=== PATIENT | female | born 1945 | race Caucasian/White ===

== ENCOUNTER 2016-10-08 19:30 | Inpatient (IN) | payer MEDICARE ==
[2016-10-08] MEDS ORDERED: MORPHINE SULFATE 5 MG/ML PFS IVP ONE (20:12)
[2016-10-08] MEDS ORDERED: ONDANSETRON HCL IV 4 MG/2 ML VIAL IVP ONE (20:12)
[2016-10-08] MEDS ORDERED: 0.9 % SODIUM CHLORIDE 1000ML 1,000 ML IV SCH (20:15)
--- NOTE | 2016-10-08 20:17 | Emergency Department Record ---
History of Present Illness - General Stated complaint: VOMITING, ABD PAIN Time Seen by Provider: 10/08/16 20:11 Source: Patient Mode of Arrival: Ambulatory Limitations: No limitations - History of Present Illness Initial comments: 70 yo female presents to ED with a 3-day history of nausea, vomiting, and abdominal pain symptoms. Patient reports recent contact with her grandchild diagnosed with rotovirus. Patient reports previous aniket/ANDRE, denies history of colitis/bowel obstructions. Patient denies fevers, chills, or cough symptoms. MD complaint: Abdominal pain, Nausea, Vomiting Onset/Timin -: Days(s) Associated Abdominal Pain: Yes Location: Diffuse Radiation: None Severity: Moderate Quality: Aching, Cramping Consistency: Constant Improves with: None Worsens with: None Context: Sick contacts - Related Data Allergies Allergy/AdvReac Type Severity Reaction Status Date / Time amoxicillin trihydrate Allergy HEADACHE Verified 10/08/16 20:31 [From Augmentin] meperidine HCl [From Demerol] Allergy VOMITING Verified 10/08/16 20:31 moxifloxacin HCl Allergy HEADACHE Verified 10/08/16 20:31 [From Avelox] potassium clavulanate Allergy HEADACHE Verified 10/08/16 20:31 [From Augmentin] Review of Systems Constitutional: Denies: Chills, Fever, Malaise, Night sweats Eyes: Denies: Eye discharge, Eye pain ENT: Denies: Congestion, Ear pain, Epistaxis Respiratory: Denies: Cough, Dyspnea Cardiovascular: Denies: Chest pain, Dyspnea on exertion Endocrine: Denies: Fatigue, Heat or cold intolerance Gastrointestinal: Reports: Abdominal pain, Diarrhea, Nausea, Vomiting. Denies: Constipation Genitourinary: Denies: Frequency, Hematuria, Incontinence, Retention Musculoskeletal: Denies: Arthralgia, Back pain, Gout, Joint swelling Skin: Denies: Bruising, Change in color Neurological: Denies: Abnormal gait, Confusion, Headache, Tingling Psychiatric: Denies: Anxiety Hematological/Lymphatic: Denies: Anemia, Blood Clots Physical Exam - General General Appearance: Alert, Oriented x3, Cooperative, Moderate distress Limitations: No limitations - Head Head exam: Atraumatic, Normocephalic, Normal inspection Head exam detail: negative: Abrasion, Contusion, Clark's sign, General tenderness, Hematoma, Laceration - Eye Eye exam: Normal appearance. negative: Conjunctival injection, Periorbital swelling, Periorbital tenderness, Scleral icterus - ENT Ear exam: negative: Auricular hematoma, Auricular trauma Nasal Exam: negative: Active bleeding, Discharge, Dried blood, Foreign body Mouth exam: negative: Drooling, Laceration, Muffled voice, Tongue elevation - Neck Neck exam: Normal inspection. negative: Meningismus, Tenderness - Respiratory Respiratory exam: Normal lung sounds bilaterally. negative: Respiratory distress, Rhonchi, Stridor, Wheezes - Cardiovascular Cardiovascular Exam: Regular rate, Normal rhythm, Normal heart sounds - GI/Abdominal GI/Abdominal exam: Soft, Tenderness (mild, diffuse TTP on examination, no focal TTP, no rebound or guarding present). negative: Rebound, Rigid - Rectal Rectal exam: Deferred - exam: Deferred - Extremities Extremities exam: Normal inspection. negative: Calf tenderness, Pedal edema, Tenderness - Back Back exam: Denies: CVA tenderness (R), CVA tenderness (L), Paraspinal tenderness , Rash noted - Neurological Neurological exam: Alert, Oriented X3. negative: Motor sensory deficit - Psychiatric Psychiatric exam: Normal affect, Normal mood - Skin Skin exam: Normal color. negative: Abrasion Type of lesion: negative: abrasion Course - Reevaluation(s) Reevaluation #1: 10/08/16 21:26 Labs reviewed, WBC 6.5, Hgb 18, HCT 52.3. Creatininie 1.7 (baseline 0.8), BUN 29 (baseline 16-20). AST/ALT mildly elevated at 66/78. Stool studies are pending at this time, influenza is negative. Patient is back from CT, interpretation pending. Reevaluation #2: 10/08/16 21:42 CT Abdomen and Pelvis: 2 mm non-obstructing calculi left kidney, no hydronephrosis, no obstructing calculi, diverticulosis without evidence for diverticulitis. Patient reassessed, clinically improved. Patient does not have the urge to give stool sample at this time. Patient and family were updated on all results , as well, repeat abdominal examination reveal a soft, non-tender abdomen at this time, abdomen is non-surgical. Will admit for dehydration/RUBÉN with IVF resuscitation over night and antiemetics for her symptoms. Patient and family agree with plan as discussed. Medical Decision Making - Lab Data Result diagrams: 10/08/16 20:40 10/08/16 20:40 Disposition Disposition: Admit Clinical Impression: Dehydration, Acute kidney injury, Nausea, Vomiting, and Diarrhea Disposition: Still a Patient at [facility] Decision to Admit: Admit from ER Decision to Admit Date: 10/08/16 Decision to Admit Time: 21:49 Condition: (2) Stable Time of Disposition: 21:49
[2016-10-08 20:49] LABS: INFLUENZA A NEGATIVE (NEGATIVE); INFLUENZA B NEGATIVE (NEGATIVE)
[2016-10-08 20:51] LABS: BASO % 0.6 % (0-6); EOS % 0.3 % (0-6); HEMATOCRIT 52.3 % (35.0-47.0); LYMPH % 14.3 % (16-45); MEAN CELL VOLUME 88.9 fl (81-97); MEAN CORPUSCULAR HEMOGLOBIN 30.6 pg (27-33); MEAN CORPUSCULAR HGB CONC 34.4 g/dl (32-36); MEAN PLATELET VOLUME 10.6 fl (7.4-10.4); MONO % 7.8 % (0-9); PLATELET COUNT 225 K/uL (130-400); RED BLOOD COUNT 5.88 M/uL (3.80-5.40); RED CELL DISTRIBUTION WIDTH 14.5 % (11.5-14.5); WHITE BLOOD COUNT W/O DIFF 6.5 K/uL (4.2-12.2)
[2016-10-08 21:02] LABS: LACTIC ACID 1.8 mmol/L (0.7-2.1)
[2016-10-08 21:03] LABS: ALB/GLOB RATIO 1.3 (1.1-1.8); ALBUMIN 4.6 gm/dL (3.5-5.0); BILIRUBIN,TOTAL 0.7 mg/dL (0.2-1.3); CREATININE 1.7 mg/dL (0.52-1.04); TOTAL PROTEIN 8.2 gm/dL (6.3-8.2)
[2016-10-08 22:18] LABS: URINE APPEARANCE CLEAR; URINE BILIRUBIN SMALL (NEGATIVE); URINE BLOOD TRACE-I (NEGATIVE); URINE COLOR YELLOW; URINE GLUCOSE (UA) NEGATIVE (NEGATIVE); URINE KETONE TRACE (NEGATIVE); URINE LEUKOCYTE ESTERASE NEGATIVE (NEGATIVE); URINE NITRITE NEGATIVE (NEGATIVE); URINE UROBILINOGEN 0.2 E.U./dL (0.20 - 1.00)
[2016-10-08 22:30] LABS: URINE AMORPHOUS SEDIMENT 2+; URINE BACTERIA 2+; URINE MUCUS MODERATE
[2016-10-08] MEDS ORDERED: CALCIUM CARBONATE 500 MG TAB.CHEW PO PRN (23:25)
[2016-10-09] MEDS: 0.9 % SODIUM CHLORIDE 1000ML 1,000 ML IV PRN ×3 (00:02→15:38)
[2016-10-09] MEDS: HYOSCYAMINE SULFATE ODT 0.125 MG TAB.SUBL SL PRN ×3 (00:05→12:21)
[2016-10-09] MEDS: ONDANSETRON HCL IV 4 MG/2 ML VIAL IVP PRN ×2 (00:05→04:05)
[2016-10-09] MEDS: ACETAMINOPHEN 500 MG TABLET PO PRN ×3 (00:43→21:18)
[2016-10-09] MEDS: LEVOTHYROXINE SODIUM 100 MCG TABLET PO SCH (06:58)
--- NOTE | 2016-10-09 07:09 | History & Physical ---
Addendum entered and electronically signed by JANNIE DURHAM N.P. 10/09/16 13:05: 10/09/16- reports has not moved bowels since yesterday morning prior to arrival to ED. Is not longer nauseated, not vomiting. Does complain of "uneasy stomach" with a lot of belching, even with clear liquids. Poor appetite. Is tolerating clear liquids but not ready to try to advance diet. No previous hx GI bleed, no previous hx h-pylori. Yesterday morning while trying to take a shower felt really weak and hot, was not able to complete her shower, got dressed and "barely made it back to bed" and had daughter in law bring her to ED. Denies abdominal pain but does have general abdominal discomfort. CT abdomen with 2 mm left renal non-obstruction calculus, stable left lower lobe lung nodule, sigmoid diverticulosis without diverticulitis, no hydronephrosis. Alert and appropriate, HRRR, lung CTA, abd soft with generalized tenderness, no edema. Will plan on advancing diet as tolerated, continue IV hydration, will order PT/ OT should she continue to feel weak tomorrow, add Protonix 40mg QD, h-pylori stat, CBC/CMP/TSH in am. Awaiting stool sample collection. Last A1C per patient report was 6.8 in January with normal renal function. Has appt with PCP tomorrow for general diabetes check. Original Note: History of Present Illness - Date of Service Date of Service for History & Physical: 10/09/16 - History of Present Illness Admitting Diagnosis: Dehydration. RUBÉN. Nausea, Vomiting, Diarrhea History of Present Illness: 70 yo female with 3 day history of nausea, vomiting, diarrhea, abdominal pain admitted with RUBÉN, dehyrdration. PMX: smoker, high cholesterol, UTI, stress incontinence, diabetes, thyroid disease, neuropathy PSX: thyroidectomy, hysterectomy, cholycystectoy, left delores surgeryk carpal tunnel surgery, lung biopsy, left breast cyst removal, bilat elbow surgries, right eye implant Prior to arrival patient reports recent contact with her grandchild whom was diagnosed with rotovirus. Patient reports previous aniket/ANDRE, denies history of colitis/bowel obstructions. Patient denies fevers, chills, or cough symptoms While in the ED VSS, she wa afebrile. WBC 6.5, Hgb 18, Hct 52.3, randome glucoe 225. Na 138, K 3.7, initial BUN/CR and after IVF BUN/CR 27/06 which patient reports is baseline. CT abdomen unremarkable, non obstructing renal calculi. Unable to obtain stool sample in ED. Transferred to floor for IV hydration. 10/09/16- resting in bed comfortably, denies complaint. Diarrhea, nausea and vomiting has........... Travel Screening - Travel/Exposure Within Last 30 Days Have you traveled within the last 30 days?: No Location Detail:: [place] - Travel/Exposure Within Last Year Have you traveled outside the [place] in the last year?: No - Additonal Travel Details Have you been exposed to anyone with a communicable illness?: No - Travel Symptoms Symptom Screening: None Review of Systems Constitutional: Denies: Chills, Fever, Malaise, Night sweats Eyes: Denies: Eye discharge, Eye pain ENT: Denies: Congestion, Ear pain, Epistaxis Respiratory: Denies: Cough, Dyspnea Cardiovascular: Denies: Chest pain, Dyspnea on exertion Endocrine: Denies: Fatigue, Heat or cold intolerance Gastrointestinal: Reports: Abdominal pain, Diarrhea, Nausea, Vomiting. Denies: Constipation Genitourinary: Denies: Frequency, Hematuria, Incontinence, Retention Musculoskeletal: Denies: Arthralgia, Back pain, Gout, Joint swelling Skin: Denies: Bruising, Change in color Neurological: Denies: Abnormal gait, Confusion, Headache, Tingling Psychiatric: Denies: Anxiety Hematological/Lymphatic: Denies: Anemia, Blood Clots Past Medical History - SOCIAL HISTORY Smoking Status: Current every day smoker Alcohol Use: None Drug Use: None - RESPIRATORY Hx Respiratory Disorders: No - CARDIOVASCULAR Hx Cardio Disorders: Yes Comment:: high cholesterol - NEURO Hx Neuro Disorders: No - GI Hx GI Disorders: No - Hx Genitourinary Disorders: Yes - ENDOCRINE Hx Endocrine Disorders: Yes Hx Diabetes: Yes Hx Thyroid Disease: Yes - MUSCULOSKELETAL Hx Musculoskeletal Disorders: Yes Comment:: neuropathy - PSYCH Hx Psych Problems: Yes - HEMATOLOGY/ONCOLOGY Hx Hematology/Oncology Disorders: No Family Medical History Any Significant Family History?: No H&P Meds/Allergies - Allergies Allergies: Allergies Allergy/AdvReac Type Severity Reaction Status Date / Time amoxicillin trihydrate Allergy HEADACHE Verified 10/08/16 20:31 [From Augmentin] meperidine HCl [From Demerol] Allergy VOMITING Verified 10/08/16 20:31 moxifloxacin HCl Allergy HEADACHE Verified 10/08/16 20:31 [From Avelox] potassium clavulanate Allergy HEADACHE Verified 10/08/16 20:31 [From Augmentin] - Home Medications Home Medications Medication Instructions Recorded Confirmed Last Taken Aspirin [Aspirin EC] 81 mg PO QPM 10/08/16 10/08/16 Unknown Captopril [Capoten] 12.5 mg PO DAILY 10/08/16 10/08/16 Unknown Cyanocobalamin (Vitamin B-12) 2,500 mcg PO DAILY 10/08/16 10/08/16 Unknown [Vitamin B12] Duloxetine HCl [Cymbalta] 60 mg PO QPM 10/08/16 10/08/16 Unknown Levothyroxine Sodium [Synthroid] 100 mcg PO QAM 10/08/16 10/08/16 Unknown Metformin HCl 500 mg PO QPM 10/08/16 10/08/16 Unknown Pioglitazone HCl [Actos] 30 mg PO QAM 10/08/16 10/08/16 Unknown Pravastatin Sodium [Pravachol] 40 mg PO QPM 10/08/16 10/08/16 Unknown - Active Medications Active Medications: Current Medications Acetaminophen (Tylenol 500mg Tab) 1,000 mg PO Q6H PRN PRN Reason: PAIN/TEMP Last Admin: 10/09/16 00:43 Dose: 1,000 mg Aspirin (Ecotrin (Ec)) 81 mg PO QPM [facility] Calcium Carbonate/Glycine (Tums) 1,000 mg PO QID PRN PRN Reason: GI UPSET Captopril (Capoten) 12.5 mg PO DAILY [facility] Duloxetine HCl (Cymbalta) 60 mg PO QPM [facility] Hyoscyamine (Levsin Odt) 0.25 mg SL Q4H PRN PRN Reason: Abdominal Pain Last Admin: 10/09/16 04:05 Dose: 0.25 mg Sodium Chloride () 1,000 mls @ 125 mls/hr IV .Q8H PRN PRN Reason: LARGE VOLUME IV Last Admin: 10/09/16 00:02 Dose: 125 mls/hr Levothyroxine Sodium (Synthroid) 100 mcg PO DAILYTHY [facility] Metformin HCl (Glucophage Ir) 500 mg PO QPM [facility] Ondansetron HCl (Zofran) 4 mg IVP Q4H PRN PRN Reason: NAUSEA Last Admin: 10/09/16 04:05 Dose: 4 mg Pioglitazone HCl (Actos) 30 mg PO DAILY [facility] Simvastatin (Zocor) 20 mg PO QHS [facility] Physical Exam - Vital Signs Vital Signs: Vital Signs - Last 24 Hrs Temp Pulse Pulse Resp BP BP Pulse Ox 10/08/16 22:50 98.4 F 74 18 114/64 98 10/08/16 22:38 98.0 F 81 22 107/63 97 - General General Appearance: Alert, Oriented x3, Cooperative, Moderate distress Limitations: No limitations - Head Head exam: Atraumatic, Normocephalic, Normal inspection Head exam detail: negative: Abrasion, Contusion, Clark's sign, General tenderness, Hematoma, Laceration - Eye Eye exam: Normal appearance. negative: Conjunctival injection, Periorbital swelling, Periorbital tenderness, Scleral icterus - ENT Ear exam: negative: Auricular hematoma, Auricular trauma Nasal Exam: negative: Active bleeding, Discharge, Dried blood, Foreign body Mouth exam: negative: Drooling, Laceration, Muffled voice, Tongue elevation - Neck Neck exam: Normal inspection. negative: Meningismus, Tenderness - Respiratory Respiratory exam: Normal lung sounds bilaterally. negative: Respiratory distress, Rhonchi, Stridor, Wheezes - Cardiovascular Cardiovascular Exam: Regular rate, Normal rhythm, Normal heart sounds - GI/Abdominal GI/Abdominal exam: Soft, Tenderness (mild, diffuse TTP on examination, no focal TTP, no rebound or guarding present). negative: Rebound, Rigid - Rectal Rectal exam: Deferred - exam: Deferred - Extremities Extremities exam: Normal inspection. negative: Calf tenderness, Pedal edema, Tenderness - Back Back exam: Denies: CVA tenderness (R), CVA tenderness (L), Paraspinal tenderness , Rash noted - Neurological Neurological exam: Alert, Oriented X3. negative: Motor sensory deficit - Psychiatric Psychiatric exam: Normal affect, Normal mood - Skin Skin exam: Normal color. negative: Abrasion Type of lesion: negative: abrasion Results - Labs Result Diagrams: 10/08/16 20:40 10/08/16 20:40 VTE H&P Assessment - Risk for VTE Risk for VTE: Yes Risk Level: Moderate Risk Assessment Date: 10/09/16 Risk Assessment Time: 07:10 VTE Orders Placed or Will Be Placed: Yes Plan - Detailed Diagnosis and Plan (1) RUBÉN (acute kidney injury) Current Visit: Yes Status: Acute Base Code: N17.9 - ACUTE KIDNEY FAILURE, UNSPECIFIED Comment: [birth year]70 y/o female admitted after 3 day history nausea, vomiting, diarrhea. Recent contact with grandchild diagnosed with rotavirus. BUN/Cr in ED upon arrival 29/1.7, Hgb 18, Hct 52.3, Na 138, K 3.7, lactic acid normal, influenza screen negative. Does have hx Dm with normal renal function at baseline. Admitted for IV hydration for dehyration - stool polys pending - rotavirus culture pending - continue IV hydration .9NS @ 125ml/hr - repeat CBC/CMP (2) Dehydration Current Visit: Yes Status: Acute Base Code: E86.0 - DEHYDRATION Comment: [birth year]70 y/o female admitted after 3 day history nausea, vomiting, diarrhea. Recent contact with grandchild diagnosed with rotavirus. BUN/Cr in ED upon arrival 29/1.7, Hgb 18, Hct 52.3, Na 138, K 3.7, lactic acid normal, influenza screen negative. Does have hx Dm with normal renal function at baseline. Admitted for IV hydration for dehyration - stool polys pending - rotavirus culture pending - continue IV hydration .9NS @ 125ml/hr - repeat CBC/CMP (3) Nausea, vomiting and diarrhea Current Visit: Yes Status: Acute Base Code: R11.2 - NAUSEA WITH VOMITING, UNSPECIFIED; R19.7 - DIARRHEA, UNSPECIFIED Comment: [birth year]70 y/o female admitted after 3 day history nausea, vomiting, diarrhea. Recent contact with grandchild diagnosed with rotavirus. BUN/Cr in ED upon arrival 29/1.7, Hgb 18, Hct 52.3, Na 138, K 3.7, lactic acid normal, influenza screen negative. Does have hx Dm with normal renal function at baseline. Admitted for IV hydration for dehyration - stool polys pending - rotavirus culture pending - continue IV hydration .9NS @ 125ml/hr - repeat CBC/CMP - Levsin and Zofran PRN for nausea and abdominal pain (4) DVT prophylaxis Current Visit: Yes Status: Acute Base Code: [id number] - Comment: 10/09/16- moderate risk due to advanced age - nursing to encourage frequent ambulation (5) Full code status Current Visit: Yes Status: Acute Base Code: Z78.9 - OTHER SPECIFIED HEALTH STATUS Comment: 10/09/16- will remain full code status during this hospitalization
--- NOTE | 2016-10-09 07:20 | History & Physical ---
History of Present Illness - Date of Service Date of Service for History & Physical: 10/09/16 - History of Present Illness Admitting Diagnosis: Dehydration. RUBÉN. Nausea, Vomiting, Diarrhea History of Present Illness: 70 yo female with 3 day history of nausea, vomiting, diarrhea, abdominal pain admitted with RUBÉN, dehyrdration. PMX: smoker, high cholesterol, UTI, stress incontinence, diabetes, thyroid disease, neuropathy PSX: thyroidectomy, hysterectomy, cholycystectoy, left delores surgeryk carpal tunnel surgery, lung biopsy, left breast cyst removal, bilat elbow surgries, right eye implant Prior to arrival patient reports recent contact with her grandchild whom was diagnosed with rotovirus. Patient reports previous aniket/ANDRE, denies history of colitis/bowel obstructions. Patient denies fevers, chills, or cough symptoms While in the ED VSS, she wa afebrile. WBC 6.5, Hgb 18, Hct 52.3, randome glucoe 225. Na 138, K 3.7, initial BUN/CR 29/ and after IVF BUN/CR 16/ which patient reports is baseline. CT abdomen unremarkable, non obstructing renal calculi. Unable to obtain stool sample in ED. Transferred to floor for IV hydration. 10/09/16- resting in bed comfortably, denies complaint. Diarrhea, nausea and vomiting has....... Travel Screening - Travel/Exposure Within Last 30 Days Have you traveled within the last 30 days?: No Location Detail:: [place] end of august - Travel/Exposure Within Last Year Have you traveled outside the [place] in the last year?: No - Additonal Travel Details Have you been exposed to anyone with a communicable illness?: No - Travel Symptoms Symptom Screening: None Review of Systems Constitutional: Denies: Chills, Fever, Malaise, Night sweats Eyes: Denies: Eye discharge, Eye pain ENT: Denies: Congestion, Ear pain, Epistaxis Respiratory: Denies: Cough, Dyspnea Cardiovascular: Denies: Chest pain, Dyspnea on exertion Endocrine: Denies: Fatigue, Heat or cold intolerance Gastrointestinal: Reports: Abdominal pain, Diarrhea, Nausea, Vomiting. Denies: Constipation Genitourinary: Denies: Frequency, Hematuria, Incontinence, Retention Musculoskeletal: Denies: Arthralgia, Back pain, Gout, Joint swelling Skin: Denies: Bruising, Change in color Neurological: Denies: Abnormal gait, Confusion, Headache, Tingling Psychiatric: Denies: Anxiety Hematological/Lymphatic: Denies: Anemia, Blood Clots Past Medical History - SOCIAL HISTORY Smoking Status: Current every day smoker Alcohol Use: None Drug Use: None - RESPIRATORY Hx Respiratory Disorders: No - CARDIOVASCULAR Hx Cardio Disorders: Yes Comment:: high cholesterol - NEURO Hx Neuro Disorders: No - GI Hx GI Disorders: No - Hx Genitourinary Disorders: Yes - ENDOCRINE Hx Endocrine Disorders: Yes Hx Diabetes: Yes Hx Thyroid Disease: Yes - MUSCULOSKELETAL Hx Musculoskeletal Disorders: Yes Comment:: neuropathy - PSYCH Hx Psych Problems: Yes - HEMATOLOGY/ONCOLOGY Hx Hematology/Oncology Disorders: No Family Medical History Any Significant Family History?: No H&P Meds/Allergies - Allergies Allergies: Allergies Allergy/AdvReac Type Severity Reaction Status Date / Time amoxicillin trihydrate Allergy HEADACHE Verified 10/08/16 20:31 [From Augmentin] meperidine HCl [From Demerol] Allergy VOMITING Verified 10/08/16 20:31 moxifloxacin HCl Allergy HEADACHE Verified 10/08/16 20:31 [From Avelox] potassium clavulanate Allergy HEADACHE Verified 10/08/16 20:31 [From Augmentin] - Home Medications Home Medications Medication Instructions Recorded Confirmed Last Taken Aspirin [Aspirin EC] 81 mg PO QPM 10/08/16 10/08/16 Unknown Captopril [Capoten] 12.5 mg PO DAILY 10/08/16 10/08/16 Unknown Cyanocobalamin (Vitamin B-12) 2,500 mcg PO DAILY 10/08/16 10/08/16 Unknown [Vitamin B12] Duloxetine HCl [Cymbalta] 60 mg PO QPM 10/08/16 10/08/16 Unknown Levothyroxine Sodium [Synthroid] 100 mcg PO QAM 10/08/16 10/08/16 Unknown Metformin HCl 500 mg PO QPM 10/08/16 10/08/16 Unknown Pioglitazone HCl [Actos] 30 mg PO QAM 10/08/16 10/08/16 Unknown Pravastatin Sodium [Pravachol] 40 mg PO QPM 10/08/16 10/08/16 Unknown - Active Medications Active Medications: Current Medications Acetaminophen (Tylenol 500mg Tab) 1,000 mg PO Q6H PRN PRN Reason: PAIN/TEMP Last Admin: 10/09/16 06:58 Dose: 1,000 mg Aspirin (Ecotrin (Ec)) 81 mg PO QPM [facility] Calcium Carbonate/Glycine (Tums) 1,000 mg PO QID PRN PRN Reason: GI UPSET Captopril (Capoten) 12.5 mg PO DAILY [facility] Duloxetine HCl (Cymbalta) 60 mg PO QPM [facility] Hyoscyamine (Levsin Odt) 0.25 mg SL Q4H PRN PRN Reason: Abdominal Pain Last Admin: 10/09/16 04:05 Dose: 0.25 mg Sodium Chloride () 1,000 mls @ 125 mls/hr IV .Q8H PRN PRN Reason: LARGE VOLUME IV Last Admin: 10/09/16 06:59 Dose: 125 mls/hr Levothyroxine Sodium (Synthroid) 100 mcg PO DAILYTHY MEG[place] Last Admin: 10/09/16 06:58 Dose: 100 mcg Metformin HCl (Glucophage Ir) 500 mg PO QPM [facility] Ondansetron HCl (Zofran) 4 mg IVP Q4H PRN PRN Reason: NAUSEA Last Admin: 10/09/16 04:05 Dose: 4 mg Pioglitazone HCl (Actos) 30 mg PO DAILY [place] Simvastatin (Zocor) 20 mg PO QHS [facility] Physical Exam - Vital Signs Vital Signs: Vital Signs - Last 24 Hrs Temp Pulse Pulse Resp BP BP Pulse Ox 10/08/16 22:50 98.4 F 74 18 114/64 98 10/08/16 22:38 98.0 F 81 22 107/63 97 - General General Appearance: Alert, Oriented x3, Cooperative, Moderate distress Limitations: No limitations - Head Head exam: Atraumatic, Normocephalic, Normal inspection Head exam detail: negative: Abrasion, Contusion, Clark's sign, General tenderness, Hematoma, Laceration - Eye Eye exam: Normal appearance. negative: Conjunctival injection, Periorbital swelling, Periorbital tenderness, Scleral icterus - ENT Ear exam: negative: Auricular hematoma, Auricular trauma Nasal Exam: negative: Active bleeding, Discharge, Dried blood, Foreign body Mouth exam: negative: Drooling, Laceration, Muffled voice, Tongue elevation - Neck Neck exam: Normal inspection. negative: Meningismus, Tenderness - Respiratory Respiratory exam: Normal lung sounds bilaterally. negative: Respiratory distress, Rhonchi, Stridor, Wheezes - Cardiovascular Cardiovascular Exam: Regular rate, Normal rhythm, Normal heart sounds - GI/Abdominal GI/Abdominal exam: Soft, Tenderness (mild, diffuse TTP on examination, no focal TTP, no rebound or guarding present). negative: Rebound, Rigid - Rectal Rectal exam: Deferred - exam: Deferred - Extremities Extremities exam: Normal inspection. negative: Calf tenderness, Pedal edema, Tenderness - Back Back exam: Denies: CVA tenderness (R), CVA tenderness (L), Paraspinal tenderness , Rash noted - Neurological Neurological exam: Alert, Oriented X3. negative: Motor sensory deficit - Psychiatric Psychiatric exam: Normal affect, Normal mood - Skin Skin exam: Normal color. negative: Abrasion Type of lesion: negative: abrasion Results - Labs Result Diagrams: 10/08/16 20:40 10/08/16 20:40 VTE H&P Assessment - Risk for VTE Risk for VTE: Yes Risk Level: Moderate Risk Assessment Date: 10/09/16 Risk Assessment Time: 07:10 VTE Orders Placed or Will Be Placed: Yes Plan - Detailed Diagnosis and Plan (1) RUBÉN (acute kidney injury) Current Visit: Yes Status: Acute Base Code: N17.9 - ACUTE KIDNEY FAILURE, UNSPECIFIED Comment: [birth year]70 y/o female admitted after 3 day history nausea, vomiting, diarrhea. Recent contact with grandchild diagnosed with rotavirus. BUN/Cr in ED upon arrival 10/07.7, Hgb 18, Hct 52.3, Na 138, K 3.7, lactic acid normal, influenza screen negative. Does have hx Dm with normal renal function at baseline. Admitted for IV hydration for dehyration - stool polys pending - rotavirus culture pending - continue IV hydration .9NS @ 125ml/hr - repeat CBC/CMP (2) Dehydration Current Visit: Yes Status: Acute Base Code: E86.0 - DEHYDRATION Comment: [birth year]70 y/o female admitted after 3 day history nausea, vomiting, diarrhea. Recent contact with grandchild diagnosed with rotavirus. BUN/Cr in ED upon arrival 10/07.7, Hgb 18, Hct 52.3, Na 138, K 3.7, lactic acid normal, influenza screen negative. Does have hx Dm with normal renal function at baseline. Admitted for IV hydration for dehyration - stool polys pending - rotavirus culture pending - continue IV hydration .9NS @ 125ml/hr - repeat CBC/CMP (3) Nausea, vomiting and diarrhea Current Visit: Yes Status: Acute Base Code: R11.2 - NAUSEA WITH VOMITING, UNSPECIFIED; R19.7 - DIARRHEA, UNSPECIFIED Comment: 10/09/16- 70 y/o female admitted after 3 day history nausea, vomiting, diarrhea. Recent contact with grandchild diagnosed with rotavirus. BUN/Cr in ED upon arrival 29/1.7, Hgb 18, Hct 52.3, Na 138, K 3.7, lactic acid normal, influenza screen negative. Does have hx Dm with normal renal function at baseline. Admitted for IV hydration for dehyration - stool polys pending - rotavirus culture pending - continue IV hydration .9NS @ 125ml/hr - repeat CBC/CMP - Levsin and Zofran PRN for nausea and abdominal pain (4) DVT prophylaxis Current Visit: Yes Status: Acute Base Code: [id number] - Comment: 10/09/16- moderate risk due to advanced age - nursing to encourage frequent ambulation (5) Full code status Current Visit: Yes Status: Acute Base Code: Z78.9 - OTHER SPECIFIED HEALTH STATUS Comment: 10/09/16- will remain full code status during this hospitalization
[2016-10-09 08:06] LABS: BASO % 0.2 % (0-6); EOS % 0.2 % (0-6); GRAN % 53.3 % (47-80); HEMATOCRIT 45.1 % (35.0-47.0); HEMOGLOBIN 14.9 gm/dl (11.6-16.0); LYMPH % 35.2 % (16-45); MEAN CELL VOLUME 90.9 fl (81-97); MEAN PLATELET VOLUME 10.6 fl (7.4-10.4); MONO % 11.1 % (0-9); PLATELET COUNT 178 K/uL (130-400); RED BLOOD COUNT 4.96 M/uL (3.80-5.40); RED CELL DISTRIBUTION WIDTH 14.4 % (11.5-14.5); WHITE BLOOD COUNT W/O DIFF 4.2 K/uL (4.2-12.2)
[2016-10-09 08:52] LABS: ALB/GLOB RATIO 1.2 (1.1-1.8); ALBUMIN 3.2 gm/dL (3.5-5.0); ANION GAP 8.8 (7-16); BILIRUBIN,TOTAL 0.41 mg/dL (0.2-1.3); CARBON DIOXIDE 21.2 mmol/L (22-30); CREATININE 1.4 mg/dL (0.52-1.04); TOTAL PROTEIN 5.9 gm/dL (6.3-8.2)
[2016-10-09] MEDS: PIOGLITAZONE HCL 15 MG TABLET PO SCH (09:47)
[2016-10-09] MEDS: CAPTOPRIL 12.5 MG TABLET PO SCH (09:48)
[2016-10-09] MEDS: PANTOPRAZOLE SODIUM 40 MG TABLET PO SCH (13:05)
[2016-10-09] MEDS ORDERED: NICOTINE 21 MG/24 HOUR PATCH TD SCH (21:00)
[2016-10-09] MEDS: TEMAZEPAM 15 MG CAPSULE PO PRN ×2 (21:17→23:38)
[2016-10-09] MEDS ORDERED: ASPIRIN 81 MG TABEC PO SCH (22:00)
[2016-10-09] MEDS ORDERED: METFORMIN 500 MG TABLET PO SCH (22:00)
[2016-10-09] MEDS ORDERED: SIMVASTATIN 20 MG TABLET PO SCH (22:00)
[2016-10-09] MEDS ORDERED: DULOXETINE HCL 30 MG CAPSULE.DR PO SCH (22:00)
[2016-10-10] MEDS: LEVOTHYROXINE SODIUM 100 MCG TABLET PO SCH (06:28)
[2016-10-10] MEDS: PANTOPRAZOLE SODIUM 40 MG TABLET PO SCH (06:28)
[2016-10-10 06:59] LABS: HEMATOCRIT 43.8 % (35.0-47.0); HEMOGLOBIN 14.2 gm/dl (11.6-16.0); MEAN CELL VOLUME 91.8 fl (81-97); MEAN CORPUSCULAR HEMOGLOBIN 29.8 pg (27-33); MEAN CORPUSCULAR HGB CONC 32.4 g/dl (32-36); MEAN PLATELET VOLUME 10.3 fl (7.4-10.4); PLATELET COUNT 173 K/uL (130-400); RED BLOOD COUNT 4.77 M/uL (3.80-5.40); RED CELL DISTRIBUTION WIDTH 14.7 % (11.5-14.5); WHITE BLOOD COUNT W/O DIFF 4.3 K/uL (4.2-12.2)
[2016-10-10 07:15] LABS: PLATELET ESTIMATE NORMAL (NORMAL)
[2016-10-10 07:17] LABS: ALB/GLOB RATIO 1.1 (1.1-1.8); BILIRUBIN,TOTAL 0.35 mg/dL (0.2-1.3); TOTAL PROTEIN 5.7 gm/dL (6.3-8.2)
--- NOTE | 2016-10-10 07:28 | CT SCAN REPORT ---
EXAM: CT OF THE ABDOMEN AND PELVIS HISTORY: RIGHT UPPER QUADRANT PAIN. TECHNIQUE: CT of the abdomen and pelvis was performed without oral or IV contrast. This limits evaluation of bowel and solid visceral organs. Comparison: None. FINDINGS: Limited evaluation of the lung bases demonstrates a 6 mm nodule in the right lung base. This was also present on a 2013 CT of the chest. There is a second lobulated nodule in the medial right lung base also unchanged from the prior CT of the chest measuring 9.2 mm. The osseous structures are grossly intact. The visualized liver, spleen, adrenal glands, and pancreas are unremarkable. Status post cholecystectomy. Prominent appearance to the CBD likely relating to post cholecystectomy state. Right renal cyst measuring 4.3 x 5.6 cm. Punctate nonobstructing 2 mm left renal calculus. No obstructing calculus or hydronephrosis. Moderate atheromatous change. The urinary bladder is not distended, limiting its evaluation. Status post hysterectomy. Sigmoid diverticulosis. No CT evidence for diverticulitis. No free air or free fluid. The appendix is not well seen. No pericecal inflammation. IMPRESSION: 1. NEGATIVE FOR AN ACUTE INTRAABDOMINAL/PELVIC PROCESS. 2. STABLE LUNG NODULES IN THE POSTERIOR RIGHT LUNG BASE. 3. SIGMOID DIVERTICULOSIS. NO CT EVIDENCE FOR DIVERTICULITIS. 4. NONOBSTRUCTING 2 MM LEFT RENAL CALCULUS. JOB NUMBER: [id number] [facility]
[2016-10-10] MEDS: 0.9 % SODIUM CHLORIDE 1000ML 1,000 ML IV PRN ×2 (08:26)
[2016-10-10] MEDS: PIOGLITAZONE HCL 15 MG TABLET PO SCH (09:13)
[2016-10-10] MEDS: CAPTOPRIL 12.5 MG TABLET PO SCH (09:13)
--- NOTE | 2016-10-10 12:20 | Discharge Summary ---
Providers Discharge Summary Date: 10/10/16 Date of admission: 10/10/16 08:30 Expected Date of Discharge: 10/10/16 Attending physician: RENATA SULLIVAN Primary care physician: STEPHANIE MERCADO D.O. Physical Exam - Vital Signs Vital Signs: Vital Signs - Last 24 Hrs Temp Pulse Resp BP 10/10/16 09:41 98.1 F 129/76 10/10/16 09:00 71 16 - General General Appearance: Alert, Oriented x3, Cooperative, No acute distress Limitations: No limitations - Head Head exam: Atraumatic, Normocephalic, Normal inspection Head exam detail: negative: Abrasion, Contusion, Clark's sign, General tenderness, Hematoma, Laceration - Eye Eye exam: Normal appearance. negative: Conjunctival injection, Periorbital swelling, Periorbital tenderness, Scleral icterus - ENT ENT exam: Mucous membranes moist Ear exam: negative: Auricular hematoma, Auricular trauma Nasal Exam: negative: Active bleeding, Discharge, Dried blood, Foreign body Mouth exam: negative: Drooling, Laceration, Muffled voice, Tongue elevation - Neck Neck exam: Normal inspection. negative: Meningismus, Tenderness - Respiratory Respiratory exam: Normal lung sounds bilaterally. negative: Respiratory distress, Rhonchi, Stridor, Wheezes - Cardiovascular Cardiovascular Exam: Regular rate, Normal rhythm, Normal heart sounds Peripheral Pulses: 3+: Dorsalis Pedis (R), Dorsalis Pedis (L) - GI/Abdominal GI/Abdominal exam: Soft, Tenderness (generalized tenderness, no guarding). negative: Rebound, Rigid - Rectal Rectal exam: Deferred - exam: Deferred - Extremities Extremities exam: Normal inspection. negative: Calf tenderness, Pedal edema, Tenderness - Back Back exam: Denies: CVA tenderness (R), CVA tenderness (L), Paraspinal tenderness , Rash noted - Neurological Neurological exam: Alert, Oriented X3. negative: Motor sensory deficit - Psychiatric Psychiatric exam: Normal affect, Normal mood - Skin Skin exam: Normal color. negative: Abrasion Type of lesion: negative: abrasion Hospitalization - Hospitalization Admission Diagnosis: Dehydration. RUBÉN. Nausea, Vomiting, Diarrhea - Problem List/Discharge Diagnosis (1) RUBÉN (acute kidney injury) Current Visit: Yes Status: Acute Base Code: N17.9 - ACUTE KIDNEY FAILURE, UNSPECIFIED Comment: [birth year]70 y/o female admitted after 3 day history nausea, vomiting, diarrhea. Recent contact with grandchild diagnosed with rotavirus. BUN/Cr in ED upon arrival 29/1.7, Hgb 18, Hct 52.3, Na 138, K 3.7, lactic acid normal, influenza screen negative. Does have hx Dm with normal renal function at baseline. Admitted for IV hydration for dehyration - stool polys pending - rotavirus culture pending - clinical improvement with IV hydration - renal function normal this am, GFR 59 (2) Dehydration Current Visit: Yes Status: Acute Base Code: E86.0 - DEHYDRATION Comment: [birth year]70 y/o female admitted after 3 day history nausea, vomiting, diarrhea. Recent contact with grandchild diagnosed with rotavirus. BUN/Cr in ED upon arrival 29/.7, Hgb 18, Hct 52.3, Na 138, K 3.7, lactic acid normal, influenza screen negative. Does have hx Dm with normal renal function at baseline. Admitted for IV hydration for dehyration - stool polys pending - rotavirus culture pending - clinical improvement with IV hydration - renal function normal this am, GFR 59 - diet advance to regular this am, tolerated well, no vomiting or nausea - had 1 soft BM after breakfast (3) Nausea, vomiting and diarrhea Current Visit: Yes Status: Acute Base Code: R11.2 - NAUSEA WITH VOMITING, UNSPECIFIED; R19.7 - DIARRHEA, UNSPECIFIED Comment: [birth year]70 y/o female admitted after 3 day history nausea, vomiting, diarrhea. Recent contact with grandchild diagnosed with rotavirus. BUN/Cr in ED upon arrival 29/.7, Hgb 18, Hct 52.3, Na 138, K 3.7, lactic acid normal, influenza screen negative. Does have hx Dm with normal renal function at baseline. Admitted for IV hydration for dehyration - stool polys pending - rotavirus culture pending - clinical improvement with IV hydration - renal function normal this am, GFR 59 - tolerated regular diet breakfast this am (4) DVT prophylaxis Current Visit: Yes Status: Acute Base Code: [id number] - Comment: 10/10/16- moderate risk due to advanced age - nursing to encourage frequent ambulation (5) Full code status Current Visit: Yes Status: Acute Base Code: Z78.9 - OTHER SPECIFIED HEALTH STATUS Comment: 10/10/16- will remain full code status during this hospitalization - Hospitalization Course Disposition: Home, Self-Care Hospital Course: 70 yo female with 3 day history of nausea, vomiting, diarrhea, abdominal pain admitted with RUBÉN, dehyrdration. PMX: smoker, high cholesterol, UTI, stress incontinence, diabetes, thyroid disease, neuropathy PSX: thyroidectomy, hysterectomy, cholycystectoy, left delores surgeryk carpal tunnel surgery, lung biopsy, left breast cyst removal, bilat elbow surgries, right eye implant Prior to arrival patient reports recent contact with her grandchild whom was diagnosed with rotovirus. Patient reports previous aniket/ANDRE, denies history of colitis/bowel obstructions. Patient denies fevers, chills, or cough symptoms While in the ED VSS, she wa afebrile. WBC 6.5, Hgb 18, Hct 52.3, randome glucoe 225. Na 138, K 3.7, initial BUN/CR 29/17 and after IVF BUN/CR 16/ which patient reports is baseline. CT abdomen unremarkable, non obstructing renal calculi. Unable to obtain stool sample in ED. Transferred to floor for IV hydration. 10/09/16- reports has not moved bowels since yesterday morning prior to arrival to ED. Is not longer nauseated, not vomiting. Does complain of "uneasy stomach" with a lot of belching, even with clear liquids. Poor appetite. Is tolerating clear liquids but not ready to try to advance diet. No previous hx GI bleed, no previous hx h-pylori. Yesterday morning while trying to take a shower felt really weak and hot, was not able to complete her shower, got dressed and "barely made it back to bed" and had daughter in law bring her to ED. Denies abdominal pain but does have general abdominal discomfort. CT abdomen with 2 mm left renal non-obstruction calculus, stable left lower lobe lung nodule, sigmoid diverticulosis without diverticulitis, no hydronephrosis. Alert and appropriate, HRRR, lung CTA, abd soft with generalized tenderness, no edema. Will plan on advancing diet as tolerated, continue IV hydration, will order PT/ OT should she continue to feel weak tomorrow, add Protonix 40mg QD, h-pylori stat, CBC/CMP/TSH in am. Awaiting stool sample collection. Last A1C per patient report was 6.8 in January with normal renal function. Has appt with PCP tomorrow for general diabetes check. Condition at Discharge: (1) Good Discharge Medications - Discharge Medications Prescriptions: Nicotine [Nicotine 21Mg] 1 patch TD Q24H #30 patch Pantoprazole Sodium [Protonix] 40 mg PO DAILYAC #14 tablet. Home Medications: Ambulatory Orders Aspirin [Aspirin EC] 81 mg PO QPM 10/08/16 [Last Taken Unknown] Captopril [Capoten] 12.5 mg PO DAILY 10/08/16 [Last Taken Unknown] Cyanocobalamin (Vitamin B-12) [Vitamin B12] 2,500 mcg PO DAILY 10/08/16 [Last Taken Unknown] Duloxetine HCl [Cymbalta] 60 mg PO QPM 10/08/16 [Last Taken Unknown] Levothyroxine Sodium [Synthroid] 100 mcg PO QAM 10/08/16 [Last Taken Unknown] Metformin HCl 500 mg PO QPM 10/08/16 [Last Taken Unknown] Pioglitazone HCl [Actos] 30 mg PO QAM 10/08/16 [Last Taken Unknown] Pravastatin Sodium [Pravachol] 40 mg PO QPM 10/08/16 [Last Taken Unknown] Calcium Carbonate [Tums] 1,000 mg PO QID PRN #0 tab.chew 10/10/16 [Last Taken Unknown] Nicotine [Nicotine 21Mg] 1 patch TD Q24H #30 patch 10/10/16 [Last Taken Unknown] Pantoprazole Sodium [Protonix] 40 mg PO DAILYAC #14 tablet. 10/10/16 [Last Taken Unknown] Discharge Plan - Discharge Instructions Activity at Discharge: Increase Activity as Tolerated Diet at Discharge: Diabetic Diet
== END 2016-10-10 15:15 | disposition home or self-care (01) | DRG 641 ==
LOC: ER 19:30 → MEDSURG 22:34 → OBSVTOIN 10-10 08:30
PROVIDERS: ADMIT Family Medicine; ATTEND Family Medicine
DX: E86.0 Dehydration (principal); N17.9 Acute kidney failure, unspecified; R11.2 Nausea with vomiting, unspecified; R14.2 Eructation; N20.0 Calculus of kidney; R53.1 Weakness; F17.200 Nicotine dependence, unspecified, uncomplicated; E78.00 Pure hypercholesterolemia, unspecified; E03.9 Hypothyroidism, unspecified; E11.9 Type 2 diabetes mellitus without complications; Z79.84 Long term (current) use of oral hypoglycemic drugs
CPT/HCPCS: 99285 ×2; 96376; 96374; 96375; 83605; 83690; 85025 ×2; 86677; 80053 ×3; 36416; 81001; 82948; 84443; 87400; 85027; 74176; G0378 ×26; J1980 ×3; J2405 ×3; J2270; 87425; 87427; 89055; 99220; 99239; J7030

== ENCOUNTER 2018-09-21 20:08 | Emergency (ER) | payer MEDICARE ==
[2018-09-21] MEDS ORDERED: BENZONATATE 100 MG CAPSULE PO ONE (20:17)
[2018-09-21] MEDS ORDERED: AZITHROMYCIN 500 MG TABLET PO ONE (20:17)
--- NOTE | 2018-09-21 20:23 | Emergency Department Record ---
History of Present Illness - General Chief Complaint: Cough Stated Complaint: COUGH Time Seen by Provider: 09/21/18 20:11 Source: Patient Mode of Arrival: Ambulatory Limitations: No limitations - History of Present Illness Initial Comments: 72 yo female presents with cough for about 6 days. The onset was last Monday. She has some productive sputum. No blood in the sputum. No fevers. No nausea, vomiting, diarrhea. No chest pain. She is a smoker. MD Complaint: Cough, Nasal congestion -: Days(s) (6) Severity: Moderate Quality: Other Consistency: Constant Improves With: Nothing Worsens With: Other (cough) Associated Symptoms: Cough - Related Data Previous Rx's Medication Instructions Recorded Azithromycin [Zithromax] 250 mg PO DAILY #4 tablet 09/21/18 Benzonatate [Tessalon] 1 cap PO Q8H PRN #20 cap 09/21/18 Allergies Allergy/AdvReac Type Severity Reaction Status Date / Time amoxicillin trihydrate Allergy HEADACHE Unverified 03/22/17 14:30 [From Augmentin] meperidine HCl [From Demerol] Allergy VOMITING Unverified 03/22/17 14:30 moxifloxacin HCl Allergy HEADACHE Unverified 03/22/17 14:30 [From Avelox] potassium clavulanate Allergy HEADACHE Unverified 03/22/17 14:30 [From Augmentin] Review of Systems Constitutional: Denies: Chills, Fever, Malaise, Weakness Eyes: Denies: Eye discharge, Eye pain, Photophobia, Vision change ENT: Reports: Congestion. Denies: Dental pain, Ear pain, Epistaxis, Throat pain Respiratory: Reports: Cough. Denies: Dyspnea, Hemoptysis, Stridor, Wheezes Cardiovascular: Denies: Chest pain, Edema, Palpitations, Syncope Endocrine: Denies: Fatigue Gastrointestinal: Denies: Abdominal pain, Diarrhea, Nausea, Vomiting Genitourinary: Denies: Dysuria, Urgency Musculoskeletal: Denies: Arthralgia, Back pain, Myalgia Skin: Denies: Bruising, Change in color, Rash Neurological: Denies: Headache Psychiatric: Denies: Anxiety Hematological/Lymphatic: Denies: Blood Clots, Easy bleeding, Easy bruising, Swollen glands Past Medical History - SOCIAL HISTORY Smoking Status: Current every day smoker - RESPIRATORY Hx Respiratory Disorders: Yes Hx Bronchitis: Yes Hx Pneumonia: Yes Hx Sleep Apnea: Yes Hx of CPAP: Yes Comment:: CURRENT SMOKER - CARDIOVASCULAR Hx Cardio Disorders: Yes Hx Palpitations: Yes (yrs ago R/T stress) Comment:: high cholesterol - NEURO Hx Neuro Disorders: Yes Hx Dizziness: Yes (occassionally) Hx Headaches: Yes Hx of Migraines: Yes (nothing recent) - GI Hx GI Disorders: Yes Hx Reflux: Yes - Hx Genitourinary Disorders: Yes Hx Bladder Problem: Yes Hx UTI: Yes (hx of) Comment:: STRESS/URGE INCONTINENCE - ENDOCRINE Hx Endocrine Disorders: Yes Hx Diabetes: Yes Hx Thyroid Disease: Yes Comment:: doesnt check blood sugars - MUSCULOSKELETAL Hx Musculoskeletal Disorders: Yes Hx Arthritis: Yes (right knee) Comment:: right knee pain - PSYCH Hx Psych Problems: No - HEMATOLOGY/ONCOLOGY Hx Hematology/Oncology Disorders: Yes 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 negative: Conjunctival injection, Scleral icterus - ENT ENT exam: Normal exam, Mucous membranes moist, Normal orophraynx Ear exam: Normal external inspection Nasal Exam: Discharge Mouth exam: Normal external inspection Teeth exam: Normal inspection Throat exam: Normal inspection, Other (S/P T and A). negative: Tonsillar erythema, Tonsillomegaly, Tonsillar exudate, R peritonsillar mass, L peritonsillar mass - Neck Neck exam: Normal inspection. negative: Lymphadenopathy - Respiratory Respiratory exam: Normal lung sounds bilaterally. negative: Accessory muscle use, Decreased breath sounds, Prolonged expiratory, Respiratory distress, Rhonchi, Stridor, Wheezes - Cardiovascular Cardiovascular Exam: Regular rate, Normal rhythm, Normal heart sounds - GI/Abdominal GI/Abdominal exam: Soft. negative: Tenderness - Rectal Rectal exam: Deferred - exam: Deferred - Extremities Extremities exam: Normal inspection. negative: Calf tenderness, Pedal edema, Tenderness - Back Back exam: Denies: CVA tenderness (R), CVA tenderness (L) - Neurological Neurological exam: Alert, Oriented X3 - Psychiatric Psychiatric exam: Normal affect, Normal mood - Skin Skin exam: Dry, Intact, Normal color, Warm Course Vital Signs 09/21/18 20:13 Temperature 98.6 F Pulse Rate [ 94 H Pulse Ox Probe] Respiratory 28 H Rate Blood Pressure 157/81 [Left Arm] Pulse Ox 96 - Reevaluation(s) Reevaluation #1: Well appearing, mildly hoarse voice, normal work of breathing, occasion harsh cough No fever or hypoxia 09/21/18 20:21 Disposition Disposition: Discharge Clinical Impression: Bronchitis Disposition: Home, Self-Care Condition: (1) Good Instructions: Acute Bronchitis (ED) Additional Instructions: Call your doctor for the next available follow up appointment Return to the ER for a recheck if worse, any new concerns or questions Take the prescriptions provided as directed Review this ER visit and the tests performed with your family doctor Prescriptions: Azithromycin [Zithromax] 250 mg PO DAILY #4 tablet Benzonatate [Tessalon] 1 cap PO Q8H PRN #20 cap PRN Reason: Cough Time of Disposition: 20:23 Quality - Quality Measures Quality Measures: N/A - Blood Pressure Screening Does Patient Have Any of the Following: No Blood Pressure Classification: Pre-Hypertensive BP Reading Systolic Measurement: 157 Diastolic Measurement: 81 Screening for High Blood Pressure: < Pre-Hypertensive BP, F/U Documented > [ [id number]] Pre-Hypertensive Follow-up Interventions: Referral to alternative/primary care provider.
== END 2018-09-21 20:38 | disposition home or self-care (01) ==
LOC: ER 20:08
DX: J20.9 Acute bronchitis, unspecified (principal); F17.210 Nicotine dependence, cigarettes, uncomplicated
CPT/HCPCS: 99282; 99283

== ENCOUNTER 2019-02-28 12:25 | Day surgery (SDC) | payer MEDICARE ==
[2019-02-28] MEDS ORDERED: LIDOCAINE 2% MDV (20MG/ML) 20ML VIAL IV ONE (12:26)
[2019-02-28] MEDS ORDERED: PROPOFOL 10 MG/ML VIAL IV ONE (12:26)
--- NOTE | 2019-03-01 15:41 | Operative Note ---
OPERATION: ESOPHAGOGASTRODUODENOSCOPY with biopsy. PREOPERATIVE DIAGNOSIS: Non-cardiac chest pain. POSTOPERATIVE DIAGNOSIS: Irregular Z line, rule out Mendez's, otherwise normal upper endoscopy. PROCEDURE: After informed consent was obtained from the patient, she was placed in the left lateral decubitus position in the endoscopy suite, sedated and monitored by the department of anesthesia. Once sedated, a well-lubricated [id number] gastroscope was placed in the posterior oropharynx under direct visualization and passed to the proximal esophagus. The endoscope was advanced through the proximal, mid, and distal esophagus. There was an irregular Z line suspicious for short-segment Mendez's. The remainder of the esophagus appeared normal. The gastric body, antrum, pylorus, duodenal bulb and sweep were unremarkable. J-turn views of the proximal stomach revealed no obvious abnormality. The endoscope was straightened. The gastric lumen and bulb were again inspected and were unremarkable. The endoscope was retracted to the distal esophagus where biopsies were obtained from the columnar portion of the squamocolumnar border. The endoscope was removed from the patient with no new findings noted. RECOMMENDATIONS: We will await results of tissue histology to determine if there is evidence of Mendez's. If so, surveillance for Mendez's-related dysplasia would be recommended as well as a daily PPI. As always, thank you for allowing me to participate in the healthcare of your patients. NIMISAH
== END 2019-02-28 14:00 | disposition home or self-care (01) ==
LOC: HOP 12:25
PROVIDERS: ATTEND Internal Medicine Gastroenterology
DX: R07.89 Other chest pain (principal); K31.89 Other diseases of stomach and duodenum; K21.9 Gastro-esophageal reflux disease without esophagitis; E11.9 Type 2 diabetes mellitus without complications; E78.00 Pure hypercholesterolemia, unspecified; I10 Essential (primary) hypertension

== ENCOUNTER 2019-05-02 13:05 | Day surgery (SDC) | payer MEDICARE ==
[2019-05-02] MEDS ORDERED: PROPOFOL 10 MG/ML VIAL IV ONE (13:06)
[2019-05-02] MEDS ORDERED: LIDOCAINE 2% MDV (20MG/ML) 20ML VIAL IV ONE (13:06)
--- NOTE | 2019-05-03 12:41 | Operative Note ---
OPERATION: COLONOSCOPY with cold snare polypectomy x6. PREOPERATIVE DIAGNOSIS: Personal history of colon polyps. POSTOPERATIVE DIAGNOSES: 1. Severe sigmoid diverticulosis. 2. Colon polyps. SPECIMENS: Sigmoid colon and transverse colon. ESTIMATED BLOOD LOSS: Minimum. COMPLICATIONS: None apparent. PREPARATION QUALITY: Good. PROCEDURE: After informed consent was obtained from the patient, she was placed in the left lateral decubitus position in the endoscopy suite, sedated and monitored by the department of anesthesia. The endoscope was advanced into the sigmoid colon and advanced to the cecum. There were severe sigmoid diverticular changes noted. The cecum, cecal bulb, ileocecal valve, appendiceal orifice, and ascending colon were unremarkable. There were 2 sessile polyps in the transverse colon measuring approximately 4-5 mm each removed with a cold snare. minimal bleeding was noted. Polyps were retrieved. The descending colon was unrevealing. The sigmoid colon demonstrated 4 sessile and semi-pedunculated polyps each removed with a cold snare. Minimal bleeding was noted at the sites. The polyps were retrieved. Again, there were severe sigmoid diverticular changes. The rectum was unremarkable in forward and J-turn views. The endoscope was straightened, the rectal ampulla deflated, and the endoscope was removed. RECOMMENDATIONS: The patient should resume her medications. She should follow a high-fiber diet and use a fiber supplement as needed. She will require repeat colonoscopy most likely in 3 years with the final determination to be based on tissue histology. As always, thank you for allowing me to participate in the healthcare of your patients. ADDENDUM: The patient also was noted to have 2 submucosal yellow discolored lesions in the ascending colon consistent with lipomas. ISAD
== END 2019-05-02 14:45 | disposition home or self-care (01) ==
LOC: HOP 13:05
PROVIDERS: ATTEND Internal Medicine Gastroenterology
DX: Z12.11 Encounter for screening for malignant neoplasm of colon (principal); Z86.010 Personal history of colon polyps; D12.5 Benign neoplasm of sigmoid colon; D12.3 Benign neoplasm of transverse colon; K63.5 Polyp of colon; K57.30 Diverticulosis of large intestine without perforation or abscess without bleeding; E11.9 Type 2 diabetes mellitus without complications; E78.00 Pure hypercholesterolemia, unspecified; I10 Essential (primary) hypertension; E03.9 Hypothyroidism, unspecified